=== PATIENT | male | born 2005 | race Hispanic/Latino ===

== ENCOUNTER 2024-04-15 18:37 | Emergency (ER) | payer OTHER ==
[~2024-04-15] VITALS: Ht 190.5 cm; Wt 170.3 kg
[2024-04-15] MEDS ORDERED: LIDOCAINE HCL 1% 30ML-PF VIAL ONE (19:08)
[2024-04-15] MEDS: LIDOCAINE HCL 1% LOCAL INJ 20 ML VIAL INJ ONE (19:13)
[2024-04-15 19:28] VITALS: PULSE 80; RESP 20; TEMP 98; O2SAT 92
== END 2024-04-15 19:28 | disposition home or self-care (01) ==
LOC: FSED 18:43
DX: S61.012A Laceration without foreign body of left thumb without damage to nail, initial encounter (principal); W26.0XXA Contact with knife, initial encounter; Y92.89 Other specified places as the place of occurrence of the external cause
CPT/HCPCS: 12002; 96372; 99283; J2003